=== PATIENT | female | born 1970 | race Caucasian/White ===

== ENCOUNTER 2016-11-30 19:25 | Emergency (ER) | payer SELFPAY ==
[2016-11-30] MEDS ORDERED: LIDOCAINE HCL 20 ML VIAL ONE (20:26)
--- NOTE | 2016-11-30 20:36 | ERNOTE ---
Date of Service: 11/30/16 Time Seen by Provider: 11/30/16 20:38 Stated Complaint: COUGH, SORE THROAT, RUNNY NOSE Presenting Symptoms:: cough, sore throat, runny nose Source: patient Exam Limitations: no limitations Immunizations: IMMUNIZATION HX Immunizations Up to Date Yes History of Influenza Vaccine No Hx Pneumococcal Vaccination No Allergies/Adverse Reactions: Allergies codeine Allergy (Intermediate, Verified 01/25/16 18:33) Hives Home Medications: HOME MEDICATIONS Benzonatate [Tessalon Perle] 100 mg PO TID #30 capsule 11/30/16 [Last Taken Unknown] Doxycycline Hyclate [Morgidox] 100 mg PO BID #20 capsule 11/30/16 [Last Taken Unknown] Lisinopril [Zestril] 10 mg PO DAILY 11/30/16 [Last Taken Unknown] predniSONE [Prednisone] 1 tab PO TID #15 tab 11/30/16 [Last Taken Unknown] - History of Present Ilness Timing: constant, getting worse Severity: moderate Frequency/Possible Cause: Reports: occasional episodes Modifying Factors - Improves: Reports: rest Modifying Factors - Worsens: Reports: activity Associated Symptoms: Reports: chest pain/soreness, cough, shortness of breath, lightheadedness Review of Systems - Review of Systems Constitutional: Present: See HPI, recent illness, fever, chills EYE: Present: no symptoms reported ENT: Present: nose congestion, sore throat Respiratory: Present: See HPI, shortness of breath, cough Cardiology: Present: no symptoms reported Gastrointestinal/Abdominal: Present: no symptoms reported Genitourinary: Present: no symptoms reported Musculoskeletal: Present: no symptoms reported Skin: Present: no symptoms reported Neurological: Present: See HPI Endocrine: Present: no symptoms reported Hematologic/Lymphatic: Present: no symptoms reported Psych: Present: no symptoms reported - Patient's Past Medical History Patient History - Medical: No pertinent hx, Other - copd Patient History - Cardiac/Respiratory: Hypertension, Hyperlipidemia Patient History - Cancer: No Hx of Cancer Patient History - Surgical Procedures: Hysterectomy, Other Patient History - Other: None - Social History Living Situations: home Abuse History: No History of abuse Psych History: No pertinent hx Smoking Status: Current every day smoker Patient requests Smoking Cessation Consult: No Initiate information on Smoking Cessation: No Alcohol Use: none Drug Use: none - Immunizations Immunizations Up to Date: Yes Hx Pneumococcal Vaccination: No History of Influenza Vaccine: No Physical Exam - Physical Exam General Appearance: Present: mild distress Head Exam: Present: normal inspection, no evidence of injury Eye Exam: Normal inspection: bilateral, PERRL: bilateral, EOMI: bilateral Ears, Nose, Throat: Present: sinus pain/drainage, pharyngeal erythema Neck: Present: normal inspection, nontender Respiratory: Present: respiratory distress, decreased breath sounds, crackles, rales, rhonchi Cardiovascular/Chest: Present: regular rate, rhythm, no murmur, normal peripheral pulses Peripheral Pulses: N=norm/S=strong/W=weak/B=bound/A=absent: Carotid (R): Normal , Carotid (L): Normal, Radial (R): Normal, Radial (L): Normal, Femoral (R): Normal, Femoral (L): Normal, Dorsalis-pedis (R): Normal, Dorsalis-pedis (L): Normal Gastrointestinal/Abdominal: Present: normal bowel sounds, nontender, nondistended, soft, no organomegaly Back Exam: Present: normal inspection, normal range of motion, no CVA tenderness , no vertebral tenderness Extremity Exam: Present: normal inspection Neurological Exam: Present: alert, oriented, normal mood/affect, no motor/ sensory deficits DTR: N=norm/NB=norm/brisk/A=abs/DD=dull/dimin/HC=hyperactive: Bicep (R): Normal , Bicep (L): Normal, Tricep (R): Normal, Tricep (L): Normal, Knee (R): Normal, Knee (L): Normal, Ankle (R): Normal, Ankle (L): Normal Skin Exam: Present: normal color, warm/dry ED Progress - Vital Signs Patient's Vital Signs:: I have reviewed the patient's vital signs. Vital Signs: Vital Signs 11/30/16 20:00 Temperature 36.7 C Pulse Rate 98 Respiratory 20 Rate Blood Pressure 132/77 O2 Sat by Pulse 99 Oximetry - Progress/Reassessment Chief Complaint: Upper Respiratory Symptoms Progress:: Unchanged - Transfer of Care Expected Disposition: Discharge Departure Clinical Impression: COPD (chronic obstructive pulmonary disease), COPD (chronic obstructive pulmonary disease) with acute bronchitis, Bronchitis - Departure Disposition: Home Follow Up Needed Condition: Fair Instructions: Chronic Obstructive Pulmonary Disease Exacerbation Prescriptions: Benzonatate [Tessalon Perle] 100 mg PO TID #30 capsule Doxycycline Hyclate [Morgidox] 100 mg PO BID #20 capsule predniSONE [Prednisone] 1 tab PO TID #15 tab
[2016-11-30 22:10] VITALS: BP 114/59
== END 2016-11-30 21:07 | disposition home or self-care (01) ==
LOC: ER 19:25
DX: J44.9 Chronic obstructive pulmonary disease, unspecified (principal); J40 Bronchitis, not specified as acute or chronic; I10 Essential (primary) hypertension; F17.200 Nicotine dependence, unspecified, uncomplicated

== ENCOUNTER 2017-01-12 11:14 | Emergency (ER) | payer SELFPAY ==
[2017-01-12] MEDS ORDERED: ASPIRIN 81 MG TAB.CHEW PO ONE (11:31)
[2017-01-12] MEDS ORDERED: ASPIRIN 81 MG TAB.CHEW ONE (11:32)
[2017-01-12] MEDS ORDERED: NORMAL SALINE 1,000 ML IV ONE (11:34)
[2017-01-12] MEDS: NITROGLYCERIN 0.4 MG/TAB BTL SL PRN ×3 (11:37→11:52)
--- NOTE | 2017-01-12 11:38 | ERNOTE ---
Chest Pain/Cardiac HPI Chief Complaint: Chest Pain Time Seen by Provider: 01/12/17 11:17 Source: patient Exam Limitations: no limitations Immunizations: IMMUNIZATION HX Immunizations Up to Date Yes History of Influenza Vaccine No Hx Pneumococcal Vaccination No Allergies/Adverse Reactions: Allergies codeine Allergy (Intermediate, Verified 01/12/17 11:28) Hives Home Medications: HOME MEDICATIONS Aspirin [Aspirin EC] 81 mg PO DAILY 01/12/17 [Last Taken Unknown] Atorvastatin Calcium 80 mg PO DAILY 01/12/17 [Last Taken Unknown] Ubidecarenone [Co Q-10] 200 mg PO DAILY 01/12/17 [Last Taken Unknown] Valsartan 80 mg PO DAILY 01/12/17 [Last Taken Unknown] Narrative: Patient reports that she was lying in bed last night ready to go to sleep when she started to have left sided chest pain radiating down her left arm to her thumb, she describes the pain as throbbing and 8/10, denies and injury, no neck , no back pain. She had similar pain about three months ago, at that times also had a syncopal episode that lasted 30 minutes per her . She did not seek medical attention at that time but followed up with her PCP in [place] who send her to a intelligence research specialist. She was diagnosed with HTN and hyperlipidemia, started on medications. It sound like she had and echo and EKG. Her chest pain had resolved till last night. Date (Duration): 01/11/17 Time (Timing): 22:00 Timing: constant Severity/Quality: severe, other - throbbing Location: left chest Chest Pain Radiation: arms Activities at Onset: none, rest Modifying Factors - Improves: Present: nothing Modifying Factors - Worsens: Present: nothing Nitro Today/Relief: no nitro taken today Aspirin Treatment Today: 81 mg x 1, provided at home Associated Symptoms: Absent: headache, syncope, shortness of breath, diaphoresis , fever/chills Prior Chest Pain/Cardiac Workup: Reports: prior chest pain Prior Treatment: Denies: recently seen, currently on antibiotics - Patient's Past Medical History Patient History - Medical: No pertinent hx, Other Patient History - Cardiac/Respiratory: Hypertension, Hyperlipidemia Patient History - Cancer: No Hx of Cancer Patient History - Surgical Procedures: Hysterectomy, Other, Orthopedic - knee Patient History - Other: None - Social History Living Situations: home Abuse History: No History of abuse Psych History: No pertinent hx Smoking Status: Current every day smoker Cigarettes Packs Per Day: 1 Alcohol Use: none Drug Use: none - Immunizations Immunizations Up to Date: Yes Hx Pneumococcal Vaccination: No History of Influenza Vaccine: No Physical Exam - Physical Exam General Appearance: Present: wd/wn, alert, no apparent distress Head Exam: Present: normal inspection Ears, Nose, Throat: Present: normal pharynx Neck: Present: normal inspection, nontender, supple, full range of motion Respiratory: Present: no respiratory distress, normal breath sounds, no accessory muscle use, lungs clear, chest tenderness - left parasternal ( reproduces pain) Cardiovascular/Chest: Present: regular rate, rhythm, no murmur Gastrointestinal/Abdominal: Present: nontender, nondistended, soft Extremity Exam: Present: no edema Neurological Exam: Present: alert, oriented, normal mood/affect Skin Exam: Present: normal color, warm/dry ED Progress - Results and Orders Patient's Lab Results:: I have reviewed the patient's lab results. - Vital Signs Patient's Vital Signs:: I have reviewed the patient's vital signs. Vital Signs: Vital Signs 01/12/17 11:25 Temperature 36.3 C L Pulse Rate 81 Respiratory 22 H Rate Blood Pressure 118/73 O2 Sat by Pulse 98 Oximetry - EKG EKG: NSR, no ST T wave changes, unchanged from 02/2007, other - no acute changes EKG read: Interp. by me - X-Ray X-Ray #1 X-Ray: chest - no acute changes Interpretation: Reviewed by me - Progress/Reassessment Chief Complaint: Chest Pain Progress Note-Subjective: 01/12/17 11:58 pain better after 3 nitro 01/12/17 12:34 no pain, discussed test results and limitations of test to completely rule out CAD, history and exam is more consistent with chest wall pain and possible cervical radiculopathy Departure Clinical Impression: Acute chest wall pain - Departure Disposition: Home self-care Condition: Good Instructions: Chest Wall Pain, [id number] Additional Instructions: take tylenol as needed and call your primary care doctor for follow up
[2017-01-12 11:46] LABS: Hematocrit 42.2 % (37.0-47.0); Hemoglobin 14.5 gm/dL (12.5-16.0); Mean Corpuscular Hemoglobin 32.3 pg (27-31); Mean Corpuscular Hgb Conc 34.4 g/dl (32-36); Mean Platelet Volume 9.5 fl (6.0-9.5); Neutrophil % 58.3 % (42-75.0); Platelet Count 260 K/mm3 (150-450); Red Blood Count 4.49 M/mm3 (4.2-5.4); Red Cell Distribution Width 12.7 % (11.5-14.0); White Blood Count 8.7 K/mm3 (4.0-10.5)
[2017-01-12 11:54] LABS: Prothrombin Time (Patient) 10.2 Seconds (9.0-11.0)
[2017-01-12 11:55] LABS: INR 1.02 INR (0.90-1.10); Partial Thrombolplastin Time 26.4 Seconds (24-32)
[2017-01-12 12:03] LABS: ALT 35 U/L (19-67); AST 15 U/L (0-48); Albumin * 4.2 gm/dl (3.4-5.0); Alkaline Phosphatase * 122 U/L (50-170); Anion Gap 14.1 mmol/L (6.8-13.8); BUN/Creatinine Ratio 13.2 (9.0-21.6); Bilirubin, Total 0.4 mg/dL (0.0-1.1); Blood Urea Nitrogen 10 mg/dL (3-23); Ca. Corrected For Albumin 8.8 mg/dL (8.4-10.2); Calcium * 9.3 mg/dL (7.9-10.9); Carbon Dioxide 27.5 mmol/L (24-32.6); Chloride 102 mmol/L (97-106); Glucose * 112 mg/dL (70-110); Potassium 3.6 mmol/L (3.4-4.6); Sodium 140 mmol/L (132-142); Total Protein 7.8 gm/dL (6.2-8.2); Troponin I Less than 0.017 ng/ml (0.00-0.10)
[2017-01-12 12:45] VITALS: BP 107/65
== END 2017-01-12 12:44 | disposition home or self-care (01) ==
LOC: ER 11:14
DX: R07.89 Other chest pain (principal); F17.200 Nicotine dependence, unspecified, uncomplicated

== ENCOUNTER 2017-04-07 15:32 | Emergency (ER) | payer SELFPAY ==
[2017-04-07 15:37] VITALS: BP 121/61
--- NOTE | 2017-04-07 16:01 | ERNOTE ---
Date of Service: 04/07/17 Time Seen by Provider: 04/07/17 15:40 Stated Complaint: COUGH Presenting Symptoms:: cough Source: patient Exam Limitations: no limitations Immunizations: IMMUNIZATION HX Immunizations Up to Date Yes History of Influenza Vaccine No Hx Pneumococcal Vaccination No Allergies/Adverse Reactions: Allergies codeine Allergy (Intermediate, Verified 04/07/17 15:37) Hives Home Medications: HOME MEDICATIONS Aspirin [Aspirin EC] 81 mg PO DAILY 01/12/17 [Last Taken Unknown] Atorvastatin Calcium 80 mg PO DAILY 01/12/17 [Last Taken Unknown] Ubidecarenone [Co Q-10] 200 mg PO DAILY 01/12/17 [Last Taken Unknown] Albuterol Sulfate [Proair Hfa] 2 puff IH Q4H PRN #1 inhaler 04/07/17 [Last Taken Unknown] Azithromycin [Zithromax] 500 mg PO NOW #6 tab 04/07/17 [Last Taken Unknown] Benzonatate [Tessalon Perle] 100 mg PO TID PRN #12 capsule 04/07/17 [Last Taken Unknown] - History of Present Ilness Narrative: Patient presents to the ED with a cough. No fever. She has been having a cough for 3 weeks. The cough is keeping her awake at night. No CP. Coughed so hard she vomited. No calf pain or leg swelling. no SOB. She states she gets this every year and usually gets put on antibiotics that helps her. Has not seen anyone else for this. Timing: constant, getting worse Severity: moderate Frequency/Possible Cause: Reports: occasional episodes Modifying Factors - Improves: Reports: nothing Modifying Factors - Worsens: Reports: nothing Associated Symptoms: Reports: cough, nasal congestion. Denies: chest pain/ soreness, shortness of breath, earache, headache, sore throat, fever/chills Prior Treatment: Denies: recently seen Review of Systems - Review of Systems Constitutional: Absent: fever EYE: Absent: vision changes ENT: Present: See HPI Respiratory: Present: cough Cardiology: Absent: chest pain Gastrointestinal/Abdominal: Absent: abdominal pain Skin: Absent: rash Neurological: Absent: weakness - Patient's Past Medical History Patient History - Medical: No pertinent hx, Other Patient History - Cardiac/Respiratory: Hypertension, Hyperlipidemia Patient History - Cancer: No Hx of Cancer Patient History - Surgical Procedures: Hysterectomy, Other, Orthopedic Patient History - Other: None - Social History Living Situations: home Abuse History: No History of abuse Psych History: No pertinent hx Alcohol Use: none Drug Use: none - Immunizations Immunizations Up to Date: Yes Hx Pneumococcal Vaccination: No History of Influenza Vaccine: No Physical Exam - Physical Exam General Appearance: Present: alert, no apparent distress, other - well hydrated , non-toxic, no distress. Speaking in full sentences. Occasional cough. Eye Exam: Normal inspection: bilateral, PERRL: bilateral Ears, Nose, Throat: Present: normal ENT inspection. Absent: pharyngeal erythema , pharyngeal swelling, tonsillar exudate, tonsillar swelling, dry mucous membranes Neck: Present: normal inspection Respiratory: Present: no respiratory distress, normal breath sounds, no accessory muscle use, lungs clear Cardiovascular/Chest: Present: regular rate, rhythm Gastrointestinal/Abdominal: Present: normal bowel sounds, nontender, soft Back Exam: Present: normal range of motion Extremity Exam: Present: normal inspection, no edema, other - no DVT findings Neurological Exam: Present: alert, no motor/sensory deficits Skin Exam: Present: normal color, warm/dry ED Progress - Vital Signs Patient's Vital Signs:: I have reviewed the patient's vital signs. Vital Signs: Vital Signs 04/07/17 15:34 Temperature 36.0 C L Pulse Rate 89 Respiratory 12 Rate Blood Pressure 121/61 O2 Sat by Pulse 98 Oximetry - Progress/Reassessment Chief Complaint: Cough Progress Note-Subjective: 04/07/17 15:56 I offered the patient a full w/u with CXR and labs but she declines this. She understands risks and benefits but wants ABx which normally help her. I discussed warning signs and reasons to return as well as the need for close f/u. Departure Clinical Impression: Cough, Bronchitis - Departure Disposition: Home self-care Condition: Stable Instructions: Cough, Adult, [id number] Additional Instructions: Rest. Fluids. Antibiotics as directed. Follow-up with a doctor in 3-5 days for a re-check. return if you change your mind about having any of the testing we discussed, if you develop fever, trouble breathing or if your condition worsens or changes in any way. Prescriptions: Albuterol Sulfate [Proair Hfa] 2 puff IH Q4H PRN #1 inhaler PRN Reason: Shortness Of Breath Azithromycin [Zithromax] 500 mg PO NOW #6 tab Benzonatate [Tessalon Perle] 100 mg PO TID PRN #12 capsule PRN Reason: Cough
== END 2017-04-07 16:11 | disposition home or self-care (01) ==
LOC: ER 15:32
DX: J40 Bronchitis, not specified as acute or chronic (principal); R05 Cough; E78.5 Hyperlipidemia, unspecified